=== PATIENT | female | born 1945 | race Caucasian/White ===

== ENCOUNTER 2019-06-15 03:34 | Emergency (ER) | payer OTHER ==
[2019-06-15 03:44] VITALS: BP 143/86; PULSE 88; TEMP 97.6; BMI 26.5
--- NOTE | 2019-06-15 04:01 | PDOC ---
History of Present Illness - General Chief Complaint: Nasal Bleeding Stated Complaint: BLEEDING NOSE AND MOUTH Time Seen by Provider: 06/15/19 04:00 History Source: Patient Exam Limitations: No Limitations - History of Present Illness Initial Comments: 06/15/19 04:14 73yF w PMHx HTN HLD chronic sinusitis BIBEMS w R nosebleed and bleeding from mouth started at 245a while lying down, stopped with direct pressure on arrival at ED. Last took prescribed aspirin 3d ago, not on anticoagulation. Denies nose trauma. Last nosebleed 10 years ago. Wants to have chronic epigastric discomfort evaluated. Denies fever, nausea/vomiting, cough, chest pain/SOB. Past History - Past Medical History Allergies/Adverse Reactions: Allergies Allergy/AdvReac Type Severity Reaction Status Date / Time No Known Allergies Allergy Verified 06/15/19 03:37 - Psycho Social/Smoking Cessation Hx Smoking History: Never smoked Have you smoked in the past 12 months: No Information on smoking cessation initiated: No Hx Alcohol Use: No Drug/Substance Use Hx: No Review of Systems - Review of Systems Constitutional: No: Chills, Fever HEENTM: No: Eye Pain, Nose Pain Respiratory: No: Cough, Shortness of Breath Cardiac (ROS): No: Chest Pain, Syncope ABD/GI: No: Constipated, Diarrhea, Nausea, Vomiting : No: Burning, Dysuria Musculoskeletal: No: Back Pain, Joint Pain Integumentary: No: Bruising, Flushing Neurological: No: Headache, Seizure Psychiatric: No: Anxiety, Depression Endocrine: No: Intolerance to Cold, Intolerance to Heat Hematologic/Lymphatic: No: Anemia, Blood Clots *Physical Exam - Vital Signs Last Vital Signs Temp Pulse Resp BP Pulse Ox 97.6 F 88 20 143/86 99 06/15/19 03:38 06/15/19 03:38 06/15/19 03:38 06/15/19 03:38 06/15/19 03:38 - Physical Exam General Appearance: Yes: Nourished, Appropriately Dressed. No: Apparent Distress HEENT: positive: EOMI, CHARLETTE, Normal Voice, Hearing Grossly Normal, Other (dried blood R nare). negative: Scleral Icterus (R), Scleral Icterus (L) Respiratory/Chest: positive: Lungs Clear, Normal Breath Sounds. negative: Chest Tender, Respiratory Distress Cardiovascular: positive: Regular Rhythm, Regular Rate, S1, S2. negative: Edema , Murmur Gastrointestinal/Abdominal: positive: Normal Bowel Sounds, Flat, Soft. negative : Tender, Organomegaly Extremity: positive: Normal Capillary Refill Integumentary: positive: Normal Color. negative: Dry Neurologic: positive: analysis consultant II-XII NML intact, Fully Oriented, Alert, Normal Response, Responsive. negative: Confused, Disoriented Medical Decision Making - Medical Decision Making 06/15/19 04:16 73yF w PMHx HTN HLD chronic sinusitis BIBEMS w resolved R nare epistaxis. Given tylenol, afrin DC home w PCP f/u Discharge - Discharge Information Problems reviewed: Yes Clinical Impression/Diagnosis: Epistaxis Condition: Good Disposition: HOME - Follow up/Referral - Patient Discharge Instructions Patient Printed Discharge Instructions: DI for Nosebleed Additional Instructions: Follow up with your primary care doctor Drink lots of water --- Yazmin un seguimiento con saucedo mdico de atencin primaria. Beber jacky sweta Print Language: MONTENEGRIN - Post Discharge Activity
[2019-06-15] MEDS ORDERED: ACETAMINOPHEN 500 MG TABLET (FP) PO ONE (04:23)
[2019-06-15] MEDS ORDERED: ACETAMINOPHEN 325 MG TABLET (FP) ONE (04:26)
--- NOTE | 2019-06-15 04:33 | PDOC ---
Attending Attestation - Resident Resident Name: Madelaine,Scott - ED Attending Attestation I have performed the following: I have examined & evaluated the patient, The case was reviewed & discussed with the resident, I agree w/resident's findings & plan - HPI HPI: 06/16/19 04:34 73yF w PMHx HTN HLD chronic sinusitis BIBEMS w R nosebleed and bleeding from mouth started at 245a while lying down, stopped with direct pressure on arrival at ED. Last took prescribed aspirin 3d ago, not on anticoagulation. Denies nose trauma. Last nosebleed 10 years ago. Wants to have chronic epigastric discomfort evaluated. Denies fever, nausea/vomiting, cough, chest pain/SOB. - Physicial Exam PE: 06/16/19 04:34 Agree with resident exam - Medical Decision Making 06/16/19 04:34 Pt is not bleeding here. She has nomal BP; she was gven a couple of squirts of oxymeazoline prior to discharge. Follow with PMD Retun if you hae a lot of bleeding otherwise pinch nose 15 min fo hemostasis
[2019-06-15] MEDS ORDERED: OXYMETAZOLINE 0.05% NASAL SOLUTION 15 ML BOTTLE NS ONE (05:16)
== END 2019-06-15 06:40 | disposition home or self-care (01) ==
LOC: JER 03:34
PROC: 093K7ZZ Control Bleeding in Nasal Mucosa and Soft Tissue, Via Natural or Artificial Opening (ICD-10-PCS; principal; 2019-06-15)
DX: R04.0 Epistaxis (principal); J32.9 Chronic sinusitis, unspecified; I10 Essential (primary) hypertension; E78.5 Hyperlipidemia, unspecified
CPT/HCPCS: 30901-25; 99283-25